=== PATIENT | male | born 1950 | race Caucasian/White ===

== ENCOUNTER → 2017-04-17 12:19 | Outpatient (CLI) | payer MEDICARE, MEDICAID, SELFPAY ==
[2017-04-17 14:01] LABS: Hematocrit 41.3 % (40-54); Hemoglobin 13.7 g/dl (13.0-16.5); Mean Corp Hgb Conc 33.2 g/gl (32-36); Mean Corpuscular Hgb 32.2 pg (27.0-32.0); Mean Corpuscular Volume 96.9 fL (80-94); Platelet Count 356 K/mm3 (150-450); RBC Distribution Width CV 13.1 % (11.6-14.6); RBC Distribution Width SD 45.3 fl (35.1-43.9); Red Blood Count 4.26 M/mm3 (4.6-6.2); White Blood Count 6.7 K/mm3 (4.4-11.0)
[2017-04-17 14:02] LABS: Scan Indicated on CBC? Y/N NO
[2017-04-17 14:21] LABS: ALB/GLOB Ratio 0.6 RATIO (0.9-2.4); AST(SGOT) 14 U/L (15-37); Alanine Aminotransfer ALT/SGPT 15 U/L (16-61); Albumin, Serum 2.7 g/dL (3.2-5.0); Alkaline Phosphatase 58 U/L (45-117); Anion Gap 8 (5-15); BUN 12 mg/dL (7-18); BUN/Creat Ratio 12.6 RATIO (10-20); Calcium,Total 8.5 mg/dL (8.5-10.1); Chloride 98 mmol/L (98-107); Creatinine, Serum 0.96 mg/dL (0.70-1.30); EST Glomerular Filtration Rate 84 mL/min (>60); Est Glom Filt Rate - Afr Amer 101 mL/min (>60); Globulin 4.3 g/dL (2.2-4.2); Glucose 81 mg/dL (74-106); Potassium 3.2 mmol/L (3.5-5.1); Sodium Level 138 mmol/L (136-145); T4 Free Direct 1.16 ng/dL (0.76-1.46); Thyroid Stim Hormone (TSH) 2.65 uIU/mL (0.358-3.74)
== END ==
PROVIDERS: Family Provider Family Medicine; PCP Family Medicine; Visit Provider Psychiatry & Neurology Child & Adolescent Psychiatry
DX: F31.9 Bipolar disorder, unspecified (principal); F41.9 Anxiety disorder, unspecified
CPT/HCPCS: 36415; 80053; 84439; 84443; 85027

== ENCOUNTER 2017-04-18 14:20 | Emergency (ER) | payer MEDICARE, MEDICAID, SELFPAY ==
[2017-04-18 14:23] VITALS: BP 125/79; PULSE 64; RESP 16; TEMP 36.1; O2SAT 94; BMI 63.0
--- NOTE | 2017-04-18 15:09 | RAD_ITS ---
STUDY: X-RAY - PELVIS REASON FOR EXAM: Male, 66 years old. Pain following a fall. TECHNIQUE: One view of the pelvis was obtained. COMPARISON: None. FINDINGS: There is a non-specific bowel gas pattern. Normal visualized soft tissue structures. There is narrowing with cortical sclerosis and osteophyte formation of the sacroiliac joint consistent with degenerative osteoarthritic changes. Normal visualized bilateral superior and inferior pubic rami. There are degenerative changes of the pubic symphysis with articular narrowing and sclerosis. Normal ischial tuberosities. Normal visualized right femoral head. Normal right acetabulum. There is mild articular joint space narrowing of the right hip. Normal visualized left femoral head. Normal left acetabulum. There is mild articular joint space narrowing of the left hip. RAD/Pelvis 1 or 2 Views IMPRESSION: Degenerative changes of both hip joints. Degenerative changes of the sacroiliac joints. No fracture seen. Electronically Signed: Jer Joy MD at 15:51 EST Tel [phone], Service support ,
--- NOTE | 2017-04-18 15:09 | RAD_ITS ---
STUDY: X-RAY - LEFT KNEE REASON FOR EXAM: Male, 66 years old. Pain following a fall. TECHNIQUE: 4 view(s) of the knee. COMPARISON: None. FINDINGS: Normal visualized distal femur. Normal visualized proximal tibia and fibula. Normal proximal tibiofibular articulation. There is mild degenerative arthrosis of the medial femorotibial compartment. Normal lateral femorotibial compartment. Normal patellofemoral articulation. The soft tissue structures are unremarkable. RAD/Knee 4 or More Views IMPRESSION: Degenerative arthrosis. Electronically Signed: Jer Joy MD at 15:54 EST Tel [phone], Service support ,
--- NOTE | 2017-04-18 15:09 | RAD_ITS ---
STUDY: X-RAY - RIGHT SHOULDER REASON FOR EXAM: Male, 66 years old. Pain following a fall. TECHNIQUE: 4 view(s) of the shoulder. COMPARISON: None. FINDINGS: Normal glenohumeral articulation. There is hypertrophic osteoarthrosis of the acromioclavicular joint with inferior osseous spur formation. Normal acromion. Normal humeral head and visualized proximal humerus. The soft tissue structures are unremarkable. Normal visualized pulmonary apex. RAD/Shoulder min 2 Views IMPRESSION: Degenerative changes of the right acromioclavicular joint. Electronically Signed: Jer Joy MD at 16:01 EST Tel [phone], Service support ,
[2017-04-18] MEDS: Acetaminophen 500 MG Tablet 1000 MG PO (15:51)
--- NOTE | 2017-04-18 16:04 | ED.VISSUMM ---
- ER Visit Summary Date of Service: 04/18/17 Chief Complaint: Fall. History of Present Illness: The patient is a [address] John Paul Treviño. He has mental retardation which severely limits his ability to give a history. Staff reports that he was walking and tripped over a wheelchair. He did not hit his head or have a loss of consciousness. They took his blood pressure and it was 94/69. The reports that typically he runs in the 1 teens over 80s. So they brought him in the emergency department for evaluation. Patient complains of left knee pain. Neck or back pain. Physical Examination: Vitals: Stable. Afebrile. Neck: No vertebral tenderness. Full ROM without difficulty. Cleared by NEXUS criteria. Back: No vertebral tenderness. General: A&O x 3. NAD. Cardiovascular exam: Regular rate and rhythm, no murmur, rub or gallop. Respiratory exam: Chest nontender. No crepitus. Clear to auscultation bilaterally. No wheezes or stridor. Abdominal exam: Soft, nontender, nondistended, normal bowel sounds. No pain in RUQ or LUQ specifically. No peritoneal signs. Extremity: No tenderness palpation over his right shoulder, right hip, and left knee. No pain with range of motion. Test Results: Patient had x-rays of his right shoulder, pelvis, and left knee that all show degenerative changes and no acute disease. Emergency Department Course and Treatment: Was treated with Tylenol. His blood pressure was 125/79. He is resting comfortably. Treatment Plan: He will be discharged instructions to follow-up Dr. John Paul Treviño in 1 week if not improving. Use Tylenol as needed for pain. Return to the emergency department for any worsening symptoms. Disposition: To home in improved and stable condition. Impression: 1. Fall. 2. Left knee pain, acute. This note was generated with [employer] dictation software. It may contain incorrect words, spelling, and punctuation that were not noted in review of the chart prior to signing ED Disposition - Plan for ED Patient: Disposition: Home or Assisted Living Chief Complaint: Fall Instructions: ED Knee Pain [facility] Prescriptions: Acetaminophen [Tylenol] 1,000 mg PO Q6H PRN PRN #30 tablet PRN Reason: Pain Referrals: John Paul Treviño MD [Primary Care Provider] - 1 Week if not improving
[2017-04-18 16:34] VITALS: BP 137/76; BP 137/78; PULSE 76; RESP 16; O2SAT 99
== END 2017-04-18 16:35 | disposition home or self-care (01) ==
PROVIDERS: Emergency Provider Emergency Medicine; Family Provider Family Medicine; PCP Family Medicine
DX: M25.562 Pain in left knee (principal); W18.09XA Striking against other object with subsequent fall, initial encounter; Y93.01 Activity, walking, marching and hiking; Y92.9 Unspecified place or not applicable; F79 Unspecified intellectual disabilities; K22.70 Barrett's esophagus without dysplasia; Z79.899 Other long term (current) drug therapy
CPT/HCPCS: 72170; 73030; 73564; 99283

== ENCOUNTER → 2017-05-25 10:08 | Outpatient (CLI) | payer MEDICARE, MEDICAID, SELFPAY ==
[2017-05-25 12:19] LABS: Potassium 3.7 mmol/L (3.5-5.1)
== END ==
PROVIDERS: Family Provider Family Medicine; PCP Family Medicine; Visit Provider Family Medicine
DX: E87.6 Hypokalemia (principal)
CPT/HCPCS: 36415; 84132

== ENCOUNTER → 2017-06-08 09:06 | Outpatient (CLI) | payer MEDICARE, MEDICAID, SELFPAY ==
--- NOTE | 2017-06-08 09:15 | RAD_ITS ---
STUDY: X-RAY CHEST REASON FOR EXAM: Male, 66 years old. Cough TECHNIQUE: PA and lateral views of the chest. COMPARISON: 02/17/2017 FINDINGS: Adequate inflation. Stable left lower lobe scarring. No acute airspace disease. There is no demonstrated pleural abnormality. Mildly elevated left hemidiaphragm. Normal size heart. Normal mediastinum and norah. Normal visualized pulmonary arteries. Normal visualized aortic arch and descending thoracic aorta. There are diffuse degenerative changes of the visualized thoracic spine. There is degenerative osteoarthritis of the bilateral shoulders. There is no demonstrated abnormality of the visualized soft tissue structures of the upper abdomen. RAD/Chest PA and Lateral IMPRESSION: No acute airspace disease. Left lower lobe scarring Electronically Signed: Nakul Griffin DO at 9:57 EDT Tel , Service support ,
== END ==
PROVIDERS: Family Provider Family Medicine; PCP Family Medicine; Visit Provider Family Medicine
DX: R05 Cough (principal)
CPT/HCPCS: 71046

== ENCOUNTER 2017-06-14 18:27 | Emergency (ER) | payer MEDICARE, MEDICAID, SELFPAY ==
[2017-06-14 18:28] VITALS: BP 106/57; BP 113/59; PULSE 76; RESP 16; TEMP 35.9; O2SAT 96; BMI 31.3
--- NOTE | 2017-06-14 19:08 | EKG12_ITS ---
Test Reason : GENERAL ILLNESS Blood Pressure : / mmHG Vent. Rate : 069 BPM Atrial Rate : 069 BPM P-R Int : 148 ms QRS Dur : 100 ms QT Int : 436 ms P-R-T Axes : 042 074 062 degrees QTc Int : 467 ms Normal sinus rhythm Normal ECG Confirmed by MARCELINO TABOR, SHELLY ([id number]), editor news JORGE TREVIÑO ([id number]) on 06/20/2017 9:00:29 AM Referred By: John Paul Treviño Confirmed By:SHELLY BENSON MD
--- NOTE | 2017-06-14 19:08 | RAD_ITS ---
STUDY: X-RAY - RIGHT KNEE REASON FOR EXAM: Male, 66 years old. Right knee pain TECHNIQUE: 4 view(s) of the knee. COMPARISON: None. FINDINGS: There is no evidence of fracture or dislocation. There are mild degenerative changes. There are no radiodense foreign bodies. RAD/Knee 4 or More Views IMPRESSION: No fracture or dislocation. Mild degenerative change. Electronically Signed: Eros Shaver, at 20:15 EDT Tel , Service support ,
--- NOTE | 2017-06-14 19:39 | RAD_ITS ---
STUDY: X-RAY CHEST REASON FOR EXAM: Male, 66 years old. Cough with shortness of breath TECHNIQUE: AP and lateral views of the chest. COMPARISON: June 08, 2017 FINDINGS: There is persistent elevation of the left hemidiaphragm. There is perihilar fullness associated with prominent interstitial markings. There is cardiomegaly present. There is atherosclerotic tortuosity of the aortic arch and descending thoracic aorta. There is demineralization of the osseous structures. Normal visualized ribs, clavicles, and shoulders. There is no demonstrated abnormality of the visualized soft tissue structures of the upper abdomen. RAD/Chest PA and Lateral IMPRESSION: Cardiomegaly associated with pulmonary venous congestion and possible interstitial edema. Electronically Signed: Yola Corral MD at 20:50 EDT Tel , Service support ,
[2017-06-14 19:48] LABS: Absolute Lymphocyte Count 2.27 X10^3/ul (0.83-4.51); Absolute Neutrophil Count 2.8 X10^3/uL (2.0-7.7); Basophil# 0.03 X10^3/uL; Basophil% 0.5 % (0-1); Eosinophils% 6.6 % (0-5); Hematocrit 39.9 % (40-54); Hemoglobin 12.8 g/dl (13.0-16.5); Lymphocyte # 2.27 X10^3/ul (4.0); Lymphocyte % 37.7 % (19-41); Mean Corp Hgb Conc 32.1 g/gl (32-36); Mean Corpuscular Hgb 30.9 pg (27.0-32.0); Mean Corpuscular Volume 96.4 fL (80-94); Mean Platelet Vol. 9.3 fl (6.2-12.0); Monocyte% 8.3 % (0-10); Neutrophil % 46.6 % (47-70); Platelet Count 484 K/mm3 (150-450); RBC Distribution Width CV 13.8 % (11.6-14.6); RBC Distribution Width SD 48.8 fl (35.1-43.9); Red Blood Count 4.14 M/mm3 (4.6-6.2)
[2017-06-14 19:59] LABS: ALB/GLOB Ratio 0.6 RATIO (0.9-2.4); AST(SGOT) 10 U/L (15-37); Alanine Aminotransfer ALT/SGPT 13 U/L (16-61); Albumin, Serum 2.5 g/dL (3.2-5.0); Alkaline Phosphatase 61 U/L (45-117); Anion Gap 5 (5-15); BUN 8 mg/dL (7-18); BUN/Creat Ratio 9.3 RATIO (10-20); Calcium,Total 7.9 mg/dL (8.5-10.1); Chloride 100 mmol/L (98-107); Creatinine, Serum 0.86 mg/dL (0.70-1.30); EST Glomerular Filtration Rate 95 mL/min (>60); Est Glom Filt Rate - Afr Amer 115 mL/min (>60); Estimated Creatinine Clearance 77.28 ml/min; Globulin 4.1 g/dL (2.2-4.2); Glucose 96 mg/dL (74-106); Potassium 3.9 mmol/L (3.5-5.1); Protein, Total 6.6 g/dL (6.4-8.2); Sodium Level 139 mmol/L (136-145)
[2017-06-14 20:06] LABS: Bacteria 0 SEEN /hpf (None Seen); Mucous, Urine 0 SEEN /hpf (<or=2+); Red Blood Cells-Urine 0 SEEN /hpf (0-5); Squamous Epithelial Cells - UA 0 SEEN /hpf (0-5); White Blood Cells 0 SEEN /hpf (0-5)
[2017-06-14 20:13] LABS: POSITIVE COUNT NO; POSITIVE DIFFERENTIAL NO; POSITIVE MORPHOLOGY NO
[2017-06-14 20:34] VITALS: BP 105/63; PULSE 72; RESP 16; O2SAT 96
[2017-06-14 20:40] LABS: Color, Urine Straw (Yellow); Glucose, Dipstick Normal (Normal); Ketone-Dipstick Negative (Negative); Leukocyte Esterase-Dipstick Negative /ul (Negative); Nitrite-Dipstick Negative (Negative); Occult Blood-Urine Negative /ul (Negative); Protein-Dipstick Negative (Negative); Specific Gravity, Urine 1.005 (1.002-1.030); Urine Bilirubin Dipstick Negative (Negative); Urine Clarity Clear (Clear); Urine Urobilinogen Normal (Normal)
--- NOTE | 2017-06-14 21:03 | ED.VISSUMM ---
- ER Visit Summary Date of Service: 06/14/17 Chief Complaint: Fall History of Present Illness: The patient is a 66 M who presents after a fall. He fell this morning onto his knee. He does have a history of MRDD and lives at a [facility]. He had a nursing evaluation to check his knee because he did have a skin tear. There were also concerned about his weight loss. Apparently he has had a 40-50 pound weight loss over the past 4 months. He does have a history of a hiatal hernia reflux and Saunders's esophagus. They states for 4 months he has been vomiting every night after dinner. He has seen his primary care physician multiple times recently including twice in the last week. He also recently completed azithromycin. He complains of lower back pain and right knee pain. Physical Examination: Afebrile vitals are unremarkable Moist mucous membranes Heart regular rate and rhythm Lungs are clear no rales rhonchi wheezes Abdomen is soft nontender and nondistended Patient does have some mild lower back paraspinal lumbar tenderness There is a skin tear noted over the anterior right knee he has active full range of motion no focal bony tenderness no appreciable effusion Alert no focal or lateralizing neurological deficits Test Results: EKG shows normal sinus rhythm at a rate of 69. Laboratory studies notable for hemoglobin 12.8. CMP essentially unremarkable. Urinalysis unremarkable. Chest x-ray shows cardiomegaly and pulmonary venous congestion questionable edema. Right knee x-ray shows no acute fracture or dislocation. Emergency Department Course and Treatment: His workup is unremarkable here. Laboratory studies unremarkable. Chest x-ray did show some pulmonary venous congestion and questionable edema but he does not have a history of congestive heart failure he is not short of breath he has normal pulse oximetry heart rate and respiratory rate. He has no peripheral edema. I see no evidence of heart failure. I explained to staff that I do not see an indication for hospitalization at this time. 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 They note he actually has an appointment with gastroenterology next week. They were instructed on supportive care and the patient was discharged. Treatment Plan: [] Disposition: Discharge Impression: Fall Right knee contusion Back strain Weight loss This note was generated with [employer] dictation software. It may contain incorrect words, spelling, and punctuation that were not noted in review of the chart prior to signing ED Disposition - Plan for ED Patient: Chief Complaint: General Illness Referrals: John Paul Treviño MD [Primary Care Provider] -
--- NOTE | 2017-06-14 21:07 | ED.DCSUM_ITS ---
- ER Visit Summary Date of Service: 06/14/17 Chief Complaint: Fall History of Present Illness: The patient is a 66 M who presents after a fall. He fell this morning onto his knee. He does have a history of MRDD and lives at a [facility]. He had a nursing evaluation to check his knee because he did have a skin tear. There were also concerned about his weight loss. Apparently he has had a 40-50 pound weight loss over the past 4 months. He does have a history of a hiatal hernia reflux and Saunders's esophagus. They states for 4 months he has been vomiting every night after dinner. He has seen his primary care physician multiple times recently including twice in the last week. He also recently completed azithromycin. He complains of lower back pain and right knee pain. Physical Examination: Afebrile vitals are unremarkable Moist mucous membranes Heart regular rate and rhythm Lungs are clear no rales rhonchi wheezes Abdomen is soft nontender and nondistended Patient does have some mild lower back paraspinal lumbar tenderness There is a skin tear noted over the anterior right knee he has active full range of motion no focal bony tenderness no appreciable effusion Alert no focal or lateralizing neurological deficits Test Results: EKG shows normal sinus rhythm at a rate of 69. Laboratory studies notable for hemoglobin 12.8. CMP essentially unremarkable. Urinalysis unremarkable. Chest x-ray shows cardiomegaly and pulmonary venous congestion questionable edema. Right knee x-ray shows no acute fracture or dislocation. Emergency Department Course and Treatment: His workup is unremarkable here. Laboratory studies unremarkable. Chest x-ray did show some pulmonary venous congestion and questionable edema but he does not have a history of congestive heart failure he is not short of breath he has normal pulse oximetry heart rate and respiratory rate. He has no peripheral edema. I see no evidence of heart failure. I explained to staff that I do not see an indication for hospitalization at this time. 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 They note he actually has an appointment with gastroenterology next week. They were instructed on supportive care and the patient was discharged. Treatment Plan: [] Disposition: Discharge Impression: Fall Right knee contusion Back strain Weight loss This note was generated with [employer] dictation software. It may contain incorrect words, spelling, and punctuation that were not noted in review of the chart prior to signing ED Disposition - Plan for ED Patient: Chief Complaint: General Illness Referrals: John Paul Treviño MD [Primary Care Provider] -
--- NOTE | 2017-06-14 21:07 | ED.DEP ---
ED Disposition - Plan for ED Patient: Chief Complaint: General Illness Instructions: ED Failure To Thrive, ED Mechanical Fall, ED Avulsion Dermal Referrals: John Paul Treviño MD [Primary Care Provider] -
[2017-06-14 21:16] VITALS: BP 100/53; PULSE 71; RESP 12; O2SAT 93
== END 2017-06-14 21:17 | disposition home or self-care (01) ==
LOC: ED 19:53
PROVIDERS: Emergency Provider Emergency Medicine; Family Provider Family Medicine; PCP Family Medicine
DX: S80.01XA Contusion of right knee, initial encounter (principal); S39.012A Strain of muscle, fascia and tendon of lower back, initial encounter; W19.XXXA Unspecified fall, initial encounter; Y93.9 Activity, unspecified; Y92.199 Unspecified place in other specified residential institution as the place of occurrence of the external cause; F79 Unspecified intellectual disabilities; R63.4 Abnormal weight loss; Z68.31 Body mass index [BMI] 31.0-31.9, adult; K22.70 Barrett's esophagus without dysplasia; K44.9 Diaphragmatic hernia without obstruction or gangrene; Z79.899 Other long term (current) drug therapy
CPT/HCPCS: 71046; 73564; 80053; 81001; 85025; 93005; 99282; A4216

== ENCOUNTER 2017-07-17 14:41 | Emergency (ER) | payer MEDICARE, MEDICAID, SELFPAY ==
[2017-07-17 14:43] VITALS: BP 96/65; PULSE 63; RESP 12; TEMP 36.3; O2SAT 97; BMI 32.9
[2017-07-17 15:40] LABS: Absolute Lymphocyte Count 2.32 X10^3/ul (0.83-4.51); Absolute Neutrophil Count 2.6 X10^3/uL (2.0-7.7); Basophil# 0.02 X10^3/uL; Basophil% 0.3 % (0-1); Eosinophil# 0.46 X10^3/uL; Eosinophils% 7.7 % (0-5); Hematocrit 39.2 % (40-54); Hemoglobin 13.1 g/dl (13.0-16.5); Lymphocyte # 2.32 X10^3/ul (4.0); Lymphocyte % 38.6 % (19-41); Mean Corp Hgb Conc 33.4 g/gl (32-36); Mean Corpuscular Volume 95.6 fL (80-94); Mean Platelet Vol. 10.5 fl (6.2-12.0); Monocyte# 0.65 X10^3/uL; Monocyte% 10.8 % (0-10); Neutrophil # 2.56 X10^3/uL (2.7-7.7); Neutrophil % 42.6 % (47-70); Platelet Count 293 K/mm3 (150-450); RBC Distribution Width CV 13.9 % (11.6-14.6); RBC Distribution Width SD 47.2 fl (35.1-43.9)
[2017-07-17 15:56] LABS: Anion Gap 8 (5-15); BUN 12 mg/dL (7-18); BUN/Creat Ratio 14.2 RATIO (10-20); Calcium,Total 8.1 mg/dL (8.5-10.1); Chloride 102 mmol/L (98-107); Creatinine, Serum 0.85 mg/dL (0.70-1.30); EST Glomerular Filtration Rate 96 mL/min (>60); Est Glom Filt Rate - Afr Amer 117 mL/min (>60); Estimated Creatinine Clearance 75.37 ml/min; Glucose 78 mg/dL (74-106); Potassium 4.1 mmol/L (3.5-5.1); Sodium Level 139 mmol/L (136-145)
[2017-07-17 16:02] LABS: POSITIVE COUNT NO; POSITIVE DIFFERENTIAL NO; POSITIVE MORPHOLOGY NO
[2017-07-17 16:04] LABS: Lactic Acid 1.4 mmol/L (0.4-2.0)
--- NOTE | 2017-07-17 16:27 | ED.VISSUMM ---
- ER Visit Summary Date of Service: 07/17/17 Chief Complaint: Low blood pressure History of Present Illness: The patient is a 66 M presenting for evaluation secondary to low blood pressure. Patient has a history of GI issues, intermittent low blood pressure, as well as MR. Patient apparently was at work shop today and they did a spot blood pressure check for some reason found him to be hypotensive. He was noted to be 78/58 but was asymptomatic. Patient has follow-ups for the low blood pressure already scheduled with cardiology and GI. He has not had any recent infectious signs or symptoms fever nausea vomiting diarrhea dark colored stools and is not on any sort of anticoagulants. Review of systems through caregivers is otherwise negative. Physical Examination: Vital signs on presentation notable for blood pressure 96/65. Well-nourished male no acute distress. No conjunctival pallor. Moist mucous membranes. Heart regular rate and rhythm lungs clear. Abdomen soft nontender. Rectal exam was nontender with no gross blood was guaiac negative. Skin was normal color. Patient was alert without lateralizing neurological deficits. Test Results: CBC shows normal hemoglobin, chemistry unremarkable, lactic acid negative, guaiac is negative Emergency Department Course and Treatment: Patient presented for evaluation secondary to transient hypotension. He has had a history of this in the past. He was checked for signs of anemia, GI bleed, renal insufficiency, or poor perfusion. His workup was found to be negative as noted above. This point given the fact that this is a chronic issue and the fact that the patient's blood pressure is now in the 130 systolic I do believe that he is safe for discharge. Caregivers were instructed on continued follow-up with their specialists as previously scheduled. Disposition: Discharge Impression: 1. Transient hypotension This note was generated with [employer] dictation software. It may contain incorrect words, spelling, and punctuation that were not noted in review of the chart prior to signing ED Disposition - Plan for ED Patient: Disposition: Home or Assisted Living Chief Complaint: Hypotension Diagnosis: Transient hypotension Instructions: ED Hypotension All Causes Referrals: John Paul Treviño MD [Primary Care Provider] - Keep [facility] appointment
--- NOTE | 2017-07-17 16:30 | ED.DCSUM_ITS ---
- ER Visit Summary Date of Service: 07/17/17 Chief Complaint: Low blood pressure History of Present Illness: The patient is a 66 M presenting for evaluation secondary to low blood pressure. Patient has a history of GI issues, intermittent low blood pressure, as well as MR. Patient apparently was at work shop today and they did a spot blood pressure check for some reason found him to be hypotensive. He was noted to be 78/58 but was asymptomatic. Patient has follow-ups for the low blood pressure already scheduled with cardiology and GI. He has not had any recent infectious signs or symptoms fever nausea vomiting diarrhea dark colored stools and is not on any sort of anticoagulants. Review of systems through caregivers is otherwise negative. Physical Examination: Vital signs on presentation notable for blood pressure 96/ 65. Well-nourished male no acute distress. No conjunctival pallor. Moist mucous membranes. Heart regular rate and rhythm lungs clear. Abdomen soft nontender. Rectal exam was nontender with no gross blood was guaiac negative. Skin was normal color. Patient was alert without lateralizing neurological deficits. Test Results: CBC shows normal hemoglobin, chemistry unremarkable, lactic acid negative, guaiac is negative Emergency Department Course and Treatment: Patient presented for evaluation secondary to transient hypotension. He has had a history of this in the past. He was checked for signs of anemia, GI bleed, renal insufficiency, or poor perfusion. His workup was found to be negative as noted above. This point given the fact that this is a chronic issue and the fact that the patient's blood pressure is now in the 130 systolic I do believe that he is safe for discharge. Caregivers were instructed on continued follow-up with their specialists as previously scheduled. Disposition: Discharge Impression: 1. Transient hypotension This note was generated with [email or web address] dictation software. It may contain incorrect words, spelling, and punctuation that were not noted in review of the chart prior to signing ED Disposition - Plan for ED Patient: Disposition: Home or Assisted Living Chief Complaint: Hypotension Diagnosis: Transient hypotension Instructions: ED Hypotension All Causes Referrals: John Paul Treviño MD [Primary Care Provider] - Keep [facility] appointment
[2017-07-17 16:50] VITALS: BP 131/86; PULSE 62; RESP 16; O2SAT 100
== END 2017-07-17 16:51 | disposition home or self-care (01) ==
PROVIDERS: Emergency Provider Emergency Medicine; Family Provider Family Medicine; PCP Family Medicine
DX: I95.9 Hypotension, unspecified (principal); Z79.899 Other long term (current) drug therapy
CPT/HCPCS: 80048; 82274; 83605; 85025; 99285; A4216

== ENCOUNTER → 2017-07-24 16:20 | Outpatient (CLI) | payer MEDICARE, MEDICAID, SELFPAY ==
--- NOTE | 2017-07-24 16:24 | RAD_ITS ---
STUDY: X-RAY CHEST REASON FOR EXAM: Male, 66 years old. Cough. TECHNIQUE: Frontal and lateral views of the chest. COMPARISON: 06/14/2017. FINDINGS: Again seen is increased density in both lung bases suggestive of atelectasis or infiltrate. No definite effusions. Elevated left hemidiaphragm and moderate to large hiatal hernia to the left. There is moderate cardiac enlargement. Normal mediastinum and norah. Normal visualized pulmonary arteries. Normal visualized aortic arch and descending thoracic aorta. There are diffuse degenerative changes of the visualized thoracic spine. Normal visualized ribs, clavicles, and shoulders. There is no demonstrated abnormality of the visualized soft tissue structures of the upper abdomen. RAD/Chest PA and Lateral IMPRESSION: Possible atelectasis or infiltrate in both lung bases. Large hiatal hernia extends to the left lower hemithorax. Electronically Signed: Chencho Cr MD at 19:16 EDT , Service support ,
== END ==
PROVIDERS: Family Provider Family Medicine; PCP Family Medicine; Visit Provider Family Medicine
DX: K44.9 Diaphragmatic hernia without obstruction or gangrene (principal); R05 Cough
CPT/HCPCS: 71046

== ENCOUNTER → 2017-08-14 12:43 | Outpatient (CLI) | payer MEDICARE, MEDICAID, SELFPAY ==
--- NOTE | 2017-08-14 12:43 | DT_ITS ---
This patient was seen during an EMR downtime August 14, 2017 - August 21, 2017. This patient may have a combination of paper and electronic documentation or all paper documentation. All documentation is viewable within the e-chart portion of [facility] for each patient visit.
--- NOTE | 2017-08-14 13:00 | MRI_ITS ---
STUDY: MRI CERVICAL SPINE WITHOUT CONTRAST REASON FOR EXAM: Male, 66 years old. Trauma TECHNIQUE: Standardized fat and water weighted pulse sequences were obtained in the sagittal and axial planes. COMPARISON: CT March 11, 2016 FINDINGS: Normal foramen magnum and brainstem-cervical cord junction. Normal craniovertebral junction. Normal anterior atlantoaxial articulation. Normal odontoid process. Normal cervical lordosis. Normal vertebral bodies and posterior osseous elements. C2-3: Normal endplates. Normal disc height, signal and tiny left paracentral disc protrusion. Normal central canal and intervertebral neural foramina. C3-4: Normal endplates. Normal disc height, signal and small left paracentral disc protrusion. Normal central canal. Mild right neuroforaminal stenosis and more severe narrowing on the left secondary to bony hypertrophy C4-5: Normal endplates. Normal disc height, signal and small central disc protrusion.. Normal central canal. Severe bilateral neuroforaminal stenosis secondary to bony hypertrophy C5-6: Normal endplates. Normal disc height, signal and mild bulging of the disc.. Normal central canal. Moderate right neuroforaminal stenosis secondary to disc and bony hypertrophy with more severe narrowing on the left C6-7: Normal endplates. Normal disc height, signal and small central disc protrusion. Normal central canal. Mild bilateral neuroforaminal encroachment secondary to bony hypertrophy. C7-T1: Normal endplates. Normal disc height, signal and morphology. Normal central canal and intervertebral neural foramina. Normal cervical cord. Normal visualized soft tissue structures. MRI/Spine Cervical (Routine) IMPRESSION: No evidence for acute fracture or subluxation. Spondylosis and multilevel spinal stenosis secondary to disc disease and bony hypertrophy. Findings as above Electronically Signed: Antony Srivastava MD at 22:21 EDT , Service support ,
--- NOTE | 2017-08-14 13:00 | MRI_ITS ---
STUDY: MRI BRAIN WITHOUT CONTRAST REASON FOR EXAM: Male, 66 years old. Frequent falls and seizure TECHNIQUE: Standardized multiplanar fat and water weighted pulse sequences were obtained. COMPARISON: CT of the brain on March 11, 2016 FINDINGS: Normal size of the ventricles and extra-axial spaces for the patient's age. Normal white matter tracts of the supratentorial brain. Cavum cavum septum pellucidum is noted which is normal developmental variant. Normal bilateral basal ganglia. Normal thalami. There is no extra-axial fluid accumulation. There is signal dropout within the inferior frontal lobes on the gradient echo weighted imaging sequence which may be consistent with hemosiderin secondary to old posttraumatic hemorrhagic contusions. Normal flow voids within the major intracranial circulation suggesting patency by spin echo criteria. Normal sella turcica, pituitary gland, infundibular stalk, optic chiasm and hypothalamus. Normal tectal plate and pineal gland. Normal midbrain, jose and medulla. Normal cerebellum. Normal basal cisterns. Normal bilateral temporal bones. Normal bilateral internal auditory canals. Fluid signal is seen in left mastoid which may be secondary to old inflammatory disease. No demonstrated orbital abnormality, within the constraints of a routine brain study. There is mucosal thickening within the maxillary ethmoid and sphenoid sinuses.. Normal calvarium and skull base. Normal visualized soft tissue structures. Normal visualized upper cervical spine. MRI/Brain without Contrast IMPRESSION: Findings which may be consistent with old hemorrhagic contusions within the inferior frontal lobes however correlation with clinical history is recommended. Otherwise normal unenhanced MRI of the brain. Bilateral maxillary ethmoid and sphenoid sinus disease Electronically Signed: Antony Srivastava MD at 21:43 EDT , Service support ,
== END ==
PROVIDERS: Family Provider Family Medicine; PCP Family Medicine; Visit Provider Psychiatry & Neurology Neurology
DX: M47.892 Other spondylosis, cervical region (principal); M50.31 Other cervical disc degeneration, high cervical region; R26.9 Unspecified abnormalities of gait and mobility; R56.9 Unspecified convulsions
CPT/HCPCS: 70551; 72141

== ENCOUNTER 2017-08-25 19:03 | Emergency (ER) | payer MEDICARE, MEDICAID, SELFPAY ==
[2017-08-25 19:03] VITALS: BP 107/69; PULSE 70; RESP 17; TEMP 36.1; O2SAT 97; BMI 28.4
--- NOTE | 2017-08-25 19:15 | ED.VISSUMM ---
- ER Visit Summary Date of Service: 08/25/17 Chief Complaint: Cough History of Present Illness: The patient is a 66 M with MRDD, GERD, hiatal hernia, and vomiting at night who presents for cough for 2 days. Patient lives in a correction, and he is not supposed to eat after 6:30 PM. 3 days ago he was fed at 9 PM, and that night he vomited. Since then he has vomited every night. He is supposed to wear CPAP at night but will not wear it, and thus he has an increased risk of vomiting while supine. He has had a new cough productive of thick dark lopez sputum her accompanying staff member. He has a history of aspiration pneumonia secondary to reflux disease (which is why he is not supposed to eat after 6:30pm), and correction is concerned he may have aspiration pneumonia again. No fever, shortness of breath, complaint of abdominal pain, rash, or change in his behavior. Physical Examination: Vital signs: afebrile, hemodynamically stable, no hypoxia on room air General: well nourished, well developed, in no distress, occasional dry cough Skin: warm, dry, no rash, no pallor HEENT: normocephalic and atraumatic; PERRL, EOMI, moist mucous membranes Cardiovascular: regular rate and rhythm without murmurs, no peripheral edema Respiratory: No increased work of breathing, lungs show scattered rhonchi, greater on the right Abdominal: Abdomen is soft, nontender with normoactive bowel sounds, no guarding or rebound, no masses MSK: Moves all extremities, no deformities, normal strength Neuro: Awake and alert. No facial droop, sensation and motor function intact and symmetric, normal gait Test Results: Clinical Impression(s) from Imaging Studies Chest X-Ray 08/25/17 19:20 IMPRESSION: No acute disease Electronically Signed: Tucker Avelar MD at 20:17 EDT , Service support , Emergency Department Course and Treatment: Patient is very well-appearing, afebrile, hemodynamically stable, and has only an occasional dry cough noted. His lung exam shows sporadic rhonchi, but no consistent findings, and no wheezing or rales. Chest x-ray was performed that showed no pneumonia. Patient had no new complaints during the visit. Discussed with his care provider that if he has any changes, such as development of fever, shortness of breath, malaise, worsening cough, or other concerns, he should be reevaluated, but at this time with no evidence of pneumonia or systemic illness, antibiotics would not be indicated. Patient was discharged home. Treatment Plan: [] Disposition: [] Impression: Cough, history of MRDD, history of GERD, history of aspiration This note was generated with Tip or [employer] dictation software. It may contain incorrect words, spelling, and punctuation that were not noted in review of the chart prior to signing ED Disposition - Plan for ED Patient: Chief Complaint: Cough Referrals: John Paul Treviño MD [Primary Care Provider] -
--- NOTE | 2017-08-25 19:20 | RAD_ITS ---
STUDY: X-RAY CHEST REASON FOR EXAM: Male, 66 years old. Cough TECHNIQUE: Frontal and lateral views of the chest. COMPARISON: July 24, 2017 FINDINGS: Elevated left hemidiaphragm. The lungs are clear and expanded. There is no demonstrated pleural abnormality. Mild cardiac megaly. Normal mediastinum and norah. Normal visualized pulmonary arteries. Normal visualized aortic arch and descending thoracic aorta. Normal visualized thoracic spine. Normal visualized ribs, clavicles, and shoulders. There is no demonstrated abnormality of the visualized soft tissue structures of the upper abdomen. RAD/Chest PA and Lateral IMPRESSION: No acute disease Electronically Signed: Tucker Avelar MD at 20:17 EDT , Service support ,
--- NOTE | 2017-08-25 20:35 | ED.DEP ---
ED Disposition - Plan for ED Patient: Disposition: Home or Assisted Living Chief Complaint: Cough Instructions: ED Cough Chronic Cause Unkn Referrals: John Paul Treviño MD [Primary Care Provider] - 3-5 Days if not improving
[2017-08-25 20:42] VITALS: RESP 16; O2SAT 97
== END 2017-08-25 20:42 | disposition home or self-care (01) ==
PROVIDERS: Emergency Provider Emergency Medicine; Family Provider Family Medicine; PCP Family Medicine
DX: R05 Cough (principal); F79 Unspecified intellectual disabilities; K21.9 Gastro-esophageal reflux disease without esophagitis; Z87.01 Personal history of pneumonia (recurrent); Z79.899 Other long term (current) drug therapy
CPT/HCPCS: 71046; 99282

== ENCOUNTER → 2017-09-01 10:55 | Outpatient (CLI) | payer MEDICARE, MEDICAID, SELFPAY ==
--- NOTE | 2017-09-01 10:56 | ECHOD_ITS ---
Reason For Study: dyspnea/SOB Procedure This was a 2D Doppler, Color Flow transthoracic echocardiogram. The study was technically difficult. Exam performed in department. Left Ventricle Normal LV size. Left ventricular systolic function is normal. The estimated ejection fraction is 55 %. Normal diastology for age. No regional wall motion abnormalities noted. Right Ventricle Normal RV size. Normal systolic function. Atria Normal left atrium. Normal right atrium. Mitral Valve Mitral valve not well visualized. Tricuspid Valve The tricuspid valve is not well visualized. Aortic Valve Trisinus/trileaflet aortic valve. Pulmonic Valve The pulmonic valve is not well visualized. Great Vessels Normal aortic root. The pulmonary artery is normal size. Normal inferior vena cava. Pericardium/Pleural No pericardial effusion. MMode/2D Measurements & Calculations LVIDd: 4.6 cm IVSd: 0.99 cm Ao root diam: 3.3 cm LVIDs: 3.3 cm LVPWd: 1.0 cm RVDd: 3.1 cm FS: 26.9 % LAV(MOD-bp): 51.1 ml LA A4 area: 18.6 cm2 RA A4 area: 16.3 cm2 LAV(MOD-bp) Indexed: 26.1 ml/m2 LAV(MOD-sp2): 49.3 ml LAV(MOD-sp4): 48.9 ml Doppler Measurements & Calculations MV E max jone: 61.1 cm/sec Lat Peak E' Jone: 6.6 cm/sec Med Peak E' Jone: 6.6 cm/sec MV A max jone: 55.6 cm/sec E/E' lat: 9.3 E/E' med: 9.3 MV E/A: 1.1 Ao V2 max: 98.0 cm/sec LV V1 max: 84.8 cm/sec PA V2 max: 74.1 cm/sec Ao max P.9 mmHg LV V1 max P.9 mmHg TR max jone: 198.4 cm/sec TR max P.8 mmHg Interpretation Summary Normal LV size. Left ventricular systolic function is normal. The estimated ejection fraction is 55 %. Normal diastology for age. The study was technically limited. Ordering Physician: Zelalem Nava Referring Physician: John Paul Treviño Performed By: Marley Mendieta, BING, RVT
== END ==
PROVIDERS: Family Provider Family Medicine; PCP Family Medicine; Visit Provider Internal Medicine Cardiovascular Disease
DX: I95.9 Hypotension, unspecified (principal)
CPT/HCPCS: 93306